=== PATIENT | male | born 1965 | race Caucasian/White ===

== ENCOUNTER 2023-04-04 21:05 | Emergency (ER) | payer OTHER, SELFPAY ==
[2023-04-04 21:17] VITALS: BP 141/75; PULSE 86; RESP 18; TEMP 36.6; O2SAT 99; BMI 40.2
[2023-04-04 21:54] LABS: PCR FLU A Negative PCR FLU A (Negative); PCR FLU B Negative PCR FLU B (Negative); PCR RSV POSITIVE PCR RSV (Negative)
[2023-04-04 21:56] LABS: SARS PCR* Negative SARS-CoV-2 (Negative)
--- NOTE | 2023-04-04 22:12 | CRLHL7_ITS ---
For Patients: As a result of the Cures Act, medical imaging exams and procedure reports are released immediately into your electronic medical record. You may view this report before your referring provider. If you have questions, please contact your health care provider. INDICATION: Cough, RSV, diminished right lung, right lung diminished TECHNIQUE: Chest radiograph 2 views COMPARISON: None FINDINGS: The sensitivity and specificity of the exam are severely limited by the patient`s body habitus. Mediastinum: The mediastinum is normal in appearance. Moderate cardiomegaly is noted. Lung: Both lungs are unremarkable in appearance. No sign of pleural effusion seen. No pneumothorax is identified. Bone and Soft tissue: Unremarkable for age. IMPRESSION: 1. Moderate cardiomegaly is noted. Dictated by Casey Kovacs MD @ 04/04/2023 10:41:05 PM Dictated by: Casey Kovacs MD @ 04/04/2023 22:41:09 (Electronically Signed)
[2023-04-04 23:00] VITALS: BP 135/69; PULSE 79; RESP 18; TEMP 36.6; O2SAT 99
--- NOTE | 2023-04-05 01:01 | ED.GENADULT ---
HPI - General Adult General Date Seen: 04/04/23 Chief complaint: Cough Stated complaint: cough Time Seen by Provider: 04/04/23 21:13 History of Present Illness HPI narrative: With this is a very pleasant 57-year-old male with a history of diabetes who presents to the ER today for evaluation of cough. He has been sick with cough, mild nasal congestion, mild body aches but no high fever for about a week. He is not short of breath. No chest pain. No hemoptysis. No known sick exposures but he does work 2 jobs (at [employer] and at [employer]) so has multiple exposures to people from the public every day. He came to the ER tonight because he has been coughing for a week and he is not getting better. He is concerned that there is something worse than ordinary cold going on. He is a nonsmoker. No history of low lung disease or asthma. Related Data Allergies Allergy/AdvReac Type Severity Reaction Status Date / Time Penicillins Allergy Mild Hives Verified 04/04/23 21:11 [facility] Medical History (Updated 04/04/23 @ 22:49 by Leoncio Neal MD) History of amputation of toe ?Z89.429 - Acquired absence of other toe(s), unspecified side (ICD-10) GUILLERMINA (obstructive sleep apnea) ?G47.33 - Obstructive sleep apnea (adult) (pediatric) (ICD-10) Hypertension ?I10 - Essential (primary) hypertension (ICD-10) Obesity ?E66.9 - Obesity, unspecified (ICD-10) Diabetes mellitus, type 2 ?E11.9 - Type 2 diabetes mellitus without complications (ICD-10) Vitamin D deficiency ?E55.9 - Vitamin D deficiency, unspecified (ICD-10) Depression ?F32.A - Depression, unspecified (ICD-10) Surgical History (Updated 04/04/23 @ 21:22 by Sj Ortega RN) History of refractive surgery ?Z98.890 - Other specified postprocedural states (ICD-10) History of hernia repair ?Z98.890 - Other specified postprocedural states (ICD-10) ?Z87.19 - Personal history of other diseases of the digestive system (ICD-10) History of Achilles tendon repair ?Z98.890 - Other specified postprocedural states (ICD-10) Social History Smoking Status: Never smoker Do you use any of these nicotine containing products: None Second hand tobacco smoke exposure: No How often do you have a drink containing alcohol: never How often do you have six or more drinks on one occasion: Never AUDIT-C Alcohol total score: 0 Non-prescribed substance use: denies use Exam Narrative: Exam Narrative: Constitutional: Appears well-developed and well-nourished. Alert. Conversant. Non toxic. HENT: Head: Atraumatic. Nose: Nose normal. Mouth/Throat: Oral mucosa is clear and moist. no trismus. Pharynx normal. Tonsils symmetric. No tonsillar enlargement, erythema, or exudate. Eyes: Conjunctivae normal. EOM normal. Pupils equal, round, and reactive to light. No scleral icterus. Neck: Normal range of motion. Neck supple. No tracheal deviation present. Cardiovascular: Normal rate, regular rhythm. No gallop. No friction rub. No murmur heard. Symmetric radial artery pulses Pulmonary/Chest: Effort normal. No stridor. No respiratory distress. Diminished in the right mid and lower lung field. No wheezes. No rales. No rhonchi . No tenderness. Abdominal: Soft. No distension. No mass. No tenderness. No rebound. No guarding. Musculoskeletal: RUE: Normal range of motion. No tenderness. No deformity LUE: Normal range of motion. No tenderness. No deformity RLE: Normal range of motion. No edema. No tenderness. No deformity LLE: Normal range of motion. No edema. No tenderness. No deformity Lymph: No cervical adenopathy. Neurological: Alert and oriented to person, place, and time. Normal strength. CN II-VII intact. No sensory deficit. GCS eye subscore is 4. GCS verbal subscore is 5. GCS motor subscore is 6. Normal coordination Skin: Skin is warm and dry. No rash noted. No pallor. Normal capillary refill. Psychiatric: Normal mood. Normal affect. Const: Vital Signs, click to edit/add: Vital Signs - 24 hr 04/04/23 21:17 04/04/23 23:00 04/04/23 23:00 Temperature 97.9 F 97.9 F 97.9 F Pulse Rate [Pulse Oximeter] 86 79 79 Respiratory Rate 18 18 18 Blood Pressure [Ri ght Upper Arm] 141/75 H 135/69 135/69 Pulse Oximetry 99 99 Oxygen Delivery Me thod Room Air Room Air Course Vital Signs Vital signs: Initial Vital Signs Respiratory Effort Normal, Spontaneous, Non-Labored 04/04/23 21:11 Respiratory Depth Normal 04/04/23 21:11 Respiratory Pattern Normal 04/04/23 21:11 Vital Signs Temperature 97.9 F 04/04/23 21:17 Pulse Rate 86 04/04/23 21:17 Respiratory Rate 18 04/04/23 21:17 Blood Pressure 141/75 H 04/04/23 21:17 Pulse Oximetry 99 04/04/23 21:17 Oxygen Delivery Method Room Air 04/04/23 21:17 Temperature 97.9 F 04/04/23 23:00 Pulse Rate 79 04/04/23 23:00 Respiratory Rate 18 04/04/23 23:00 Blood Pressure 135/69 04/04/23 23:00 Pulse Oximetry 99 04/04/23 23:00 Oxygen Delivery Method Room Air 04/04/23 23:00 Medical Decision Making MDM Narrative Medical decision making narrative: This patient presents for evaluation of cough ongoing for a week. This is consistent with an upper respiratory tract infection. Viral testing negative for influenza and COVID but is positive for RSV.. There is no signs at this point of serious bacterial infection such as OM, RPA, epiglottitis, PRODUCT DESIGN MANAGER, strep pharyngitis, pneumonia, sinusitis, meningitis, bacteremia, serious bacterial infection. Since he had diminished lung sounds in the right base have is concerned about possibly a right lower lobe infiltrate or a pleural effusion. Chest x-ray is obtained and shows clear lungs. Possible mild cardiomegaly. However he is not having any symptoms of CHF at this time. There are no gastrointestinal symptoms at this point and no signs of dehydration. Close followup with primary care physician is indicated. Return to ED for worsening cough, shortness of breath, fever > 103, protracted vomiting, confusion, or other worsening. At this point no indication for antibiotics. He will use [id number] cough suppressants as needed. He does not want a work note. He will wear a mask at work to try to help contain contagion Lab Data Labs: Lab Results 04/04/23 Range/Units 21:12 SARS-CoV-2 (PCR) Negative SARS-CoV-2 (Negative) Influenza Type A (PCR) Negative PCR FLU A (Negative) Influenza Type B (PCR) Negative PCR FLU B (Negative) RSV (PCR) POSITIVE PCR RSV A (Negative) Discharge Plan Discharge Clinical Impression: Respiratory syncytial virus (RSV) infection Patient Disposition: Home, Self-Care Condition: Stable Instructions: Upper Respiratory Infection (ED), RSV (Respiratory Syncytial Virus) (ED) Additional Instructions: Your tests show that you have an infection with a virus called respiratory syncytial virus (RSV). This can cause a cough last for a couple of weeks. Please continue your at-home cough medicine. Drink plenty of fluids. Rest and stay home I your cough is bad or if you are running a fever. You can return to work after no longer running a fever and your cough is improving. You should wear a mask while your work until your cough is completely gone. Please come back to the ER right away if you have worsening cough, trouble breathing, high fever, bloody cough, low oxygen, or any other problems. Follow Up/Referrals: Provider,Not a Local [Primary Care Provider] - Stand Alone Forms: [employer] Info Instructions
== END 2023-04-04 23:01 | disposition home or self-care (01) ==
PROVIDERS: Emergency Provider Emergency Medicine
DX: R05.9 Cough, unspecified (principal); B97.4 Respiratory syncytial virus as the cause of diseases classified elsewhere
CPT/HCPCS: 71046; 87631; 99283

== ENCOUNTER 2023-04-15 10:26 | Emergency (ER) | payer OTHER, SELFPAY ==
[2023-04-15] VITALS (9 sets, daily range): BP systolic 163–183; BP diastolic 79–93; PULSE 89–95; RESP 24–26; TEMP 36.6; O2SAT 93–96; BMI 40.2
[2023-04-15 11:04] LABS: Basophils Absolute Auto 0.02 K/uL (0.00-0.30); Basophils Percent Auto 0.2 % (0.0-3.0); Eosinophils Absolute Auto 0.34 K/uL (0.00-0.50); Eosinophils Percent Auto 3.3 % (0.0-7.0); Hematocrit 40.3 % (37.0-53.0); Hemoglobin* 12.5 gm/dL (13.5-17.5); Immature Granulocytes Abs Auto 0.04 K/uL (0.00-0.30); Immature Granulocytes Pct Auto 0.4 %; Lymphocytes Percent Auto 9.7 % (20-44); Mean Corpuscular HGB Conc 31 gm/dL (32-36); Mean Corpuscular Hemoglobin 29 pg (26-34); Mean Corpuscular Volume 94 fL (80-100); Monocytes Percent Auto 5.4 % (0.0-11.0); Platelet Count* 254 K/uL (140-440); RDW Coefficient of Variation % 15.2 % (11.5-15.5); White Blood Count* 10.24 K/uL (4.50-11.00)
[2023-04-15 11:10] LABS: Slide Review Reflex No
--- NOTE | 2023-04-15 11:15 | ED.NURSE ---
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 Rhythm strip printed from [employer]. Pt assessed, asymptomatic. MD notified and rhythm strip provided to .
[2023-04-15 11:18] LABS: Troponin, Point-of-Care* 0.01 ng/ml (0.01-0.04)
[2023-04-15 11:40] LABS: Albumin* 4.1 g/dL (3.3-5.0); Chloride* 104 mmol/L (96-114)
[2023-04-15 11:41] LABS: Potassium* 4.5 mmol/L (3.6-5.1); Sodium* 137 mmol/L (135-149)
[2023-04-15 11:43] LABS: Alkaline Phosphatase* 68 U/L (40-150); Anion Gap 8 mEq/L (7-15); Aspartate Amino Transferase* 23 U/L (12-35); Bilirubin Direct* 0.1 mg/dL (0.0-0.5); Bilirubin Total* 0.5 mg/dL (0.1-1.5); Carbon Dioxide* 25 mmol/L (20-32); Creatinine* 0.8 mg/dL (0.5-1.5); Est. Creatinine Clearance* 105.19; Estimated Glomerular Filt Rate 103 ml/min; Total Protein* 6.9 g/dL (6.0-8.3)
[2023-04-15 11:44] LABS: Alanine Aminotransferase* 24 U/L (4-50); Blood Urea Nitrogen* 15 mg/dL (7-30); Calcium* 8.8 mg/dL (8.4-10.6); D Dimer Quantitative* 0.31 ug/ml (0.00-0.50); Glucose* 309 mg/dL (60-115)
[2023-04-15 11:46] LABS: C Reactive Protein* 0.7 mg/dL (0.5-1.0)
[2023-04-15 11:54] LABS: PCR FLU A Negative PCR FLU A (Negative); PCR FLU B Negative PCR FLU B (Negative); PCR RSV Negative PCR RSV (Negative); SARS PCR* Negative SARS-CoV-2 (Negative)
--- NOTE | 2023-04-15 11:55 | CRLHL7_ITS ---
For Patients: As a result of the Century Cures Act, medical imaging exams and procedure reports are released immediately into your electronic medical record. You may view this report before your referring provider. If you have questions, please contact your health care provider. INDICATION: Shortness of breath. TECHNIQUE: Chest 2 views. COMPARISON: Radiographs from 04/04/2023. FINDINGS: There is moderate enlargement of the cardiomediastinal silhouette, unchanged. Lungs are hypoinflated with bronchovascular crowding. There are hazy airspace opacities in the left retrocardiac region that are best appreciated on frontal view. No pleural effusion or pneumothorax. No acute osseous abnormality. IMPRESSION: 1. Moderate cardiomegaly, similar to prior. 2. Hypoinflated lungs with hazy retrocardiac airspace opacities, which may represent atelectasis versus developing pneumonia. Dictated by Gisselle Salazar MD @ 04/15/2023 12:27:28 PM (Electronically Signed)
[2023-04-15 11:56] LABS: NT Pro B Type NatriureticPept* 137 pg/mL; Troponin I* < 0.01 ng/mL (0.01-0.04)
--- NOTE | 2023-04-15 12:02 | ED.GENADULT ---
HPI - General Adult General Chief complaint: Shortness of Breath/Dyspnea Stated complaint: Short of breath Time Seen by Provider: 04/15/23 10:37 Source: patient Mode of arrival: ambulatory Limitations: no limitations History of Present Illness HPI narrative: 57-year-old male presenting today with shortness of breath. Patient states that he was diagnosed with RSV 12 days ago and thought he was getting better. However, in the last 2 days he has felt more short of breath. At rest he is okay but shortness of breath comes with minimal physical activity. He is sleeping well at night, is not more short of breath when he lays down to go to bed. He does have a CPAP machine. He denies fevers or chills. States that his cough is much better. He denies increased swelling of his extremities, he does have chronic lower extremity edema. He is also currently on antibiotic for cellulitis of the left lower extremity, states that this is improving. He denies nausea or vomiting. No diaphoresis or dizziness. Denies tobacco use. Related Data Home Medications Medication Instructions Recorded Confirmed No Known Home Medications 04/15/23 04/15/23 Allergies Allergy/AdvReac Type Severity Reaction Status Date / Time Penicillins Allergy Mild Hives Verified 04/04/23 21:11 Review of Systems Status of ROS: Reports: 10 or more systems reviewed and unremarkable except as noted in History and below [facility] Medical History History of amputation of toe ?Z89.429 - Acquired absence of other toe(s), unspecified side (ICD-10) GUILLERMINA (obstructive sleep apnea) ?G47.33 - Obstructive sleep apnea (adult) (pediatric) (ICD-10) Hypertension ?I10 - Essential (primary) hypertension (ICD-10) Obesity ?E66.9 - Obesity, unspecified (ICD-10) Diabetes mellitus, type 2 ?E11.9 - Type 2 diabetes mellitus without complications (ICD-10) Vitamin D deficiency ?E55.9 - Vitamin D deficiency, unspecified (ICD-10) Depression ?F32.A - Depression, unspecified (ICD-10) Surgical History History of refractive surgery ?Z98.890 - Other specified postprocedural states (ICD-10) History of hernia repair ?Z98.890 - Other specified postprocedural states (ICD-10) ?Z87.19 - Personal history of other diseases of the digestive system (ICD-10) History of Achilles tendon repair ?Z98.890 - Other specified postprocedural states (ICD-10) Social History Smoking Status: Never smoker Do you use any of these nicotine containing products: None Second hand tobacco smoke exposure: No How often do you have a drink containing alcohol: never How often do you have six or more drinks on one occasion: Never AUDIT-C Alcohol total score: 0 Non-prescribed substance use: denies use Exam Narrative: Exam Narrative: Obese come well-developed patient in no acute distress. Alert and oriented. Answers questions appropriately. Mood and affect are appropriate. Thoughts are goal oriented and rational. No tangential or magical thinking noted. Patient speaks in full sentences without needing to catch his breath. He does become slightly tachypneic with any physical activity. HEENT: Normocephalic atraumatic. Pupils are equally round reactive to light. Extraocular muscles are intact. Conjunctivae are moist without any icterus noted. Moist mucous membranes. Posterior pharynx is normal. Neck is soft without any lymphadenopathy or thyromegaly. No masses are appreciated. Cardiovascular: Heart is regular rate and rhythm S1 and S2 are present without any murmurs. Lungs: Clear to auscultation bilaterally no wheezes rhonchi or rales are appreciated. Patient takes deep breaths without any discomfort. Abdomen: Soft and nontender. Abdomen is significantly protuberant, hypoactive bowel sounds. Per patient, this is unchanged. Extremities: Bilateral lower extremities have 2+ pitting edema with tight shiny skin. Patient tells me this is not new. The left lower extremity has some erythema to the ankle. Skin: Well perfused here Const: Vital Signs, click to edit/add: Vital Signs - 24 hr 04/15/23 10:31 04/15/23 10:41 04/15/23 10:45 Temperature 97.8 F Pulse Rate 93 Pulse Rate [Pulse Oximeter] 89 Respiratory Rate 26 H Blood Pressure 174/81 H Blood Pressure [Ri ght Upper Arm] 183/93 H Pulse Oximetry 96 95 93 Oxygen Delivery Me thod Room Air 04/15/23 10:46 04/15/23 11:00 04/15/23 11:00 Temperature Pulse Rate 90 89 Pulse Rate [Pulse Oximeter] Respiratory Rate Blood Pressure Blood Pressure [Ri ght Upper Arm] 163/79 H Pulse Oximetry 95 96 Oxygen Delivery Me thod 04/15/23 11:02 04/15/23 11:15 04/15/23 11:31 Temperature Pulse Rate 93 92 92 Pulse Rate [Pulse Oximeter] Respiratory Rate Blood Pressure 163/79 H Blood Pressure [Ri ght Upper Arm] Pulse Oximetry 95 95 96 Oxygen Delivery Me thod 04/15/23 12:16 Temperature Pulse Rate Pulse Rate [Pulse Oximeter] 95 Respiratory Rate 24 Blood Pressure Blood Pressure [Ri ght Upper Arm] 172/82 H Pulse Oximetry 96 Oxygen Delivery Me thod Room Air Course Course ED Course: EKG, read by me, shows normal sinus rhythm with a pulse of 90. While on the athletic monitor he had several episodes of PVCs. CBC showed mild anemia with hemoglobin of 12.5. D-dimer within normal limits. Chemistries unremarkable. Glucose elevated at 309. Lactate slightly elevated at 2.0. Troponin less than 0.01. Normal BNP and CRP. Triple swab is negative. Chest x-ray, read by me, shows atelectasis. Radiologic over-read states atelectasis versus pneumonia. However given that the patient's cough is improved and there is no evidence of infection or inflammation on his lab work, I would favor atelectasis at this time. I had a long discussion with the patient about his symptoms in his workup today. We discussed doing a chest CT to have a better look at his lungs however patient states that he does not want to do that at this time. He states that he thinks that he just has not gotten over his RSV infection which very well could be the case. When asked him about the fact that he has been getting worse over the last 2 days he tells me that perhaps he has been stable. The other thing we talked about was the mildly elevated lactate, patient does tell me that he is on metformin as well as many other medications that he does not know the name of. At this time patient felt like he could go home, he felt reassured. States that he will wait another few days to see how his symptoms change. He will return to the ER if he feels like he is getting worse. We did discuss the possibility of his shortness of breath related to his heart, I do think he needs follow-up with primary care and stress testing if he has not already had this done. Differential diagnoses includes deconditioning, decreased lung capacity, RSV infection, pneumonia, coronary artery disease. We have effectively ruled out acute coronary syndrome, pneumothorax, PE. Vital Signs Vital signs: Initial Vital Signs Temperature 97.8 F 04/15/23 10:31 Temperature Source Temporal Artery Scan 04/15/23 10:31 Pulse Rate 89 04/15/23 10:31 Respiratory Rate 26 H 04/15/23 10:31 Blood Pressure 183/93 H 04/15/23 10:31 Blood Pressure Mean 123 H 04/15/23 10:31 Pulse Oximetry 96 04/15/23 10:31 Oxygen Delivery Method Room Air 04/15/23 10:31 Vital Signs Temperature 97.8 F 04/15/23 10:31 Pulse Rate 89 04/15/23 10:31 Respiratory Rate 26 H 04/15/23 10:31 Blood Pressure 183/93 H 04/15/23 10:31 Pulse Oximetry 96 04/15/23 10:31 Oxygen Delivery Method Room Air 04/15/23 10:31 Temperature 97.8 F 04/15/23 10:31 Pulse Rate 95 04/15/23 12:16 Respiratory Rate 04/15/23 12:16 Blood Pressure 172/82 H 04/15/23 12:16 Pulse Oximetry 96 04/15/23 12:16 Oxygen Delivery Method Room Air 04/15/23 12:16 Medications Administered Medications: Discontinued Medications Generic Name Dose Route Start Last Admin Trade Name Gaston PRN Reason Stop Dose Admin Ibuprofen 600 mg 04/15/23 11:56 04/15/23 12:14 Ibuprofen 400 Mg Tablet PO 04/15/23 11:57 600 mg ONCE ONE Administration Medical Decision Making MDM Narrative Medical decision making narrative: 87-year-old male with shortness of breath, unclear etiology. Plan per above. Lab Data Lab results reviewed: Yes I reviewed the patient's lab results Labs: Lab Results 04/15/23 04/15/23 Range/Units 10:42 10:55 WBC 10.24 (4.50-11.00) K/uL RBC 4.30 (4.30-5.90) m/uL Hgb 12.5 L (13.5-17.5) gm/dL Hct 40.3 (37.0-53.0) % MCV 94 (80-100) fL MCH 29 (26-34) pg MCHC 31 L (32-36) gm/dL RDW Coeff of Anna 15.2 (11.5-15.5) % Plt Count 254 (140-440) K/uL Neut % (Auto) 81.0 H (42.0-72.0) % Lymph % (Auto) 9.7 L (20-44) % [place] % (Auto) 5.4 (0.0-11.0) % Eos % (Auto) 3.3 (0.0-7.0) % Baso % (Auto) 0.2 (0.0-3.0) % Neut # (Auto) 8.30 H (1.7-7.0) K/uL Lymph # (Auto) 1.00 (0.90-2.90) K/uL [place] # (Auto) 0.60 (0.00-0.90) K/UL Eos # (Auto) 0.34 (0.00-0.50) K/uL Baso # (Auto) 0.02 (0.00-0.30) K/uL Abs Immat Gran (auto) 0.04 (0.00-0.30) K/uL Imm/Tot Granulo (auto) 0.4 % D-Dimer Quant (PE/DVT) 0.31 (0.00-0.50) ug/ml Sodium 137 (135-149) mmol/L Potassium 4.5 (3.6-5.1) mmol/L Chloride 104 (96-114) mmol/L Carbon Dioxide 25 (20-32) mmol/L Anion Gap 8 (7-15) mEq/L BUN 15 (7-30) mg/dL Creatinine 0.8 (0.5-1.5) mg/dL Estimated Creat Clear 105.19 Estimated GFR 103 ml/min Glucose 309 H (60-115) mg/dL Lactate 2.0 H (0.5-1.9) mmol/L Calcium 8.8 (8.4-10.6) mg/dL Total Bilirubin 0.5 (0.1-1.5) mg/dL Direct Bilirubin 0.1 (0.0-0.5) mg/dL AST 23 (12-35) U/L ALT 24 (4-50) U/L Alkaline Phosphatase 68 (40-150) U/L Troponin I < 0.01 L (0.01-0.04) ng/mL C-Reactive Protein 0.7 (0.5-1.0) mg/dL NT-Pro-B Natriuret Pep 137 pg/mL Total Protein 6.9 (6.0-8.3) g/dL Albumin 4.1 (3.3-5.0) g/dL SARS-CoV-2 (PCR) Negative SARS-CoV-2 (Negative) Influenza Type A (PCR) Negative PCR FLU A (Negative) Influenza Type B (PCR) Negative PCR FLU B (Negative) RSV (PCR) Negative PCR RSV (Negative) POC Troponin I 0.01 (0.01-0.04) ng/ml Imaging Data Chest x-ray: Attestation: I have reviewed the pertinent imaging results. Radiologist's impression: Chest 2 views. COMPARISON: Radiographs from 04/04/2023. FINDINGS: There is moderate enlargement of the cardiomediastinal silhouette, unchanged. Lungs are hypoinflated with bronchovascular crowding. There are hazy airspace opacities in the left retrocardiac region that are best appreciated on frontal view. No pleural effusion or pneumothorax. No acute osseous abnormality. IMPRESSION: 1. Moderate cardiomegaly, similar to prior. 2. Hypoinflated lungs with hazy retrocardiac airspace opacities, which may represent atelectasis versus developing pneumonia. ECG Data Attestation: I personally reviewed and interpreted this ECG as follows: Discharge Plan Discharge Clinical Impression: Shortness of breath Patient Disposition: Home, Self-Care Condition: Stable Additional Instructions: No reason for a shortness of breath today was not 100% clear. We did check your heart and lungs, both appear to be at her baseline. If you feel like you shortness of breath is not improving I do think you need to follow-up with your primary care provider to discuss further testing, such as a stress test - which tests the health of your heart, if you had not had this done recently. If your symptoms become worse, I recommend you return to the ER. In the meantime, it could just be that you are recovering from RSV which can take some time. I recommend you rest as much as possible, make sure that your blood sugars are well controlled, and stay well hydrated. Prescriptions: No Action No Known Home Medications Follow Up/Referrals: Provider,Not a Local [Primary Care Provider] - Stand Alone Forms: [employer] Info Instructions
[2023-04-15] MEDS: IBUPROFEN 400 MG TABLET 600 MG PO (12:14)
== END 2023-04-15 12:59 | disposition home or self-care (01) ==
PROVIDERS: Emergency Provider Family Medicine
DX: R06.02 Shortness of breath (principal)
CPT/HCPCS: 36415; 71046; 80048; 80076; 83605; 83880; 84484; 85025; 85379; 86140; 87631; 93005; 94761; 99284; 99285; A9270